=== PATIENT | male | born 1985 | race African-American/Black ===

== ENCOUNTER 2019-03-18 13:52 | Emergency (ER) | payer SELFPAY ==
[2019-03-18] MEDS ORDERED: predniSONE 20 MG TAB ONE (14:17)
--- NOTE | 2019-03-18 15:41 | RAD ---
FRONTAL VIEW CHEST: Date: 03/18/19 No prior comparison. INDICATION: Recent onset cough. FINDINGS: There is no lobar consolidation or effusion. No discrete pneumothorax. Cardiac silhouette is normal s ize. There is a small focal opacity of the lateral right mid to lower lung zone. Osseous structures i ntact, where visualized. IMPRESSION: Small, focal density of the lateral mid to inferior right lung zone. Recommend follow-up with 2 view chest to confirm resolution. POS: C
== END 2019-03-18 14:45 | disposition home or self-care (01) ==
LOC: ERS 13:52
DX: J18.9 Pneumonia, unspecified organism (principal); Z87.891 Personal history of nicotine dependence
CPT/HCPCS: 71045; J7512; J7620

== ENCOUNTER 2023-12-03 09:33 | Emergency (ER) | payer SELFPAY | END 2023-12-03 11:44 | disposition home or self-care (01) | LOC: ERS 09:33 | DX: J45.909 Unspecified asthma, uncomplicated (principal); F17.210 Nicotine dependence, cigarettes, uncomplicated | CPT/HCPCS: 71046 ==